=== PATIENT | male | born 1945 | race Caucasian/White ===

== ENCOUNTER 2018-06-27 01:24 | Inpatient (IN) | payer OTHER, MEDICARE ==
[~2018-06-27] VITALS: Ht 167.6 cm; Wt 98.6 kg
[~2018-06-27 01:24] MED LIST: ATENOLOL50 M1 PO; KEPPRA500 M1 PO; LISINOPRIL-HCT1 EACH PO; SIMVASTATIN40 M1 PO; XARELTO10 M1 PO
--- NOTE | 2018-06-27 10:30 | Admission Core Measures ---
Acute Coronary Syndrome (CM) ACS Core Measures Acute Coronary Syndrome Diagnosis No Congestive Heart Failure (NEW) CHF Core Measures Congestive Heart Failure Diagnosis No Cerebrovascular Accident CVA Core Measures CVA/TIA Diagnosis No Venous Thromboembolism VTE Core Danette (View Protocol) VTE Risk Factors Surgery No Mechanical VTE Prophylaxis d/t N/A MechProphylax Ordered No VTE Pharm Prophylaxis d/t NA PharmProphylax ordered HOME MEDS Home Med List Atenolol 50 MG TABLET 1 TAB PO DAILY BLOOD PRESSURE (Reported) Levetiracetam (Keppra) 500 MG TABLET 500 MG PO BID PT DENIES SEIZURE ACTIVITY (Reported) Lisinopril/Hydrochlorothiazide (Lisinopril-Hctz 20-12.5 MG Tab) 20 MG-12.5 MG TABLET 1 TAB PO DAILY BLOOD PRESSURE (Reported) Rivaroxaban (Xarelto) 10 MG TABLET 10 MG PO DAILY BLOOD THINNER (Reported) Simvastatin (Simvastatin*) 40 MG TABLET 40 MG PO DAILY CHOLESTEROL (Reported)
--- NOTE | 2018-06-27 10:33 | Surg Short-stay <48hrs Dis Sum ---
Visit Information Visit Dates Admission Date: 06/27/18 Discharge Date: 06/30/2018 Surgical Short Stay DC Summary Admission Diagnosis: Right hip osteoarthritis, previous fracture Final Diagnosis: Right total hip arthroplasty Procedure(s): Right conversion previous hip surgery to total hip arthroplasty Summary/Significant Findings: Patient tolerated procedure well. Postoperatively, was tolerating a regular diet, pain was managed, ambulated with physical therapy using a rolling walker and was cleared for discharge to his nursing facility as he require continued physical therapy and rehabilitation. He had postoperative complications of urinary retention and required multiple straight caths, he was also placed on Flomax until his urinary function returned to normal. His laboratory values are stable, he is afebrile and there are no immediate postoperative complications. Condition at Discharge: Good Discharge Disposition: REHAB Discharge instructions provided to patient/family: Yes Post discharge follow-up plan: To see Dr. Tay in 6 weeks
--- NOTE | 2018-06-27 10:36 | Patient Discharge Instructions ---
See Addendum Discharge Instructions General Discharge Information You were seen/treated for: Right hip pain You had these procedures: Right hip conversion to right total hip replacement Watch for these problems: Fever over 100.4 Drainage from wound Redness and swelling around wound Unable to bear weight Chest pain or shortness of breath Do not soak the wound: Yes No bath, but you may shower: Yes Other wound care: Daily dry dressing change Special Instructions: Continue the indomethacin until postop day #10 Continue aspirin 81 mg p.o. twice daily until 3 weeks postoperatively, then resume home dose of Xarelto for history of PE/DVT Patient had urinary retention here and required multiple straight caths, may require Salmon catheter if he cannot urinate. If catheter required, recommend leaving in place for 1 week, starting patient on Flomax and following up with urologist Diet Continue normal diet: Yes Activity Activity Limited to: Weight bear as tolerated (with rolling walker) Acute Coronary Syndrome Inclusion Criteria At DC or during hospital stay patient has or had the following: ACS DIAGNOSIS No Discharge Core Measures Meds if any: Prescribed or Continued at Discharge Meds if any: NOT Prescribed or Continued at Discharge Congestive Heart Failure Inclusion Criteria At DC or during hospital stay patient has or had the following: CHF DIAGNOSIS No Discharge Core Measures Meds if any: Prescribed or Continued at Discharge Meds if any: NOT Prescribed or Continued at Discharge Cerebrovascular accident Inclusion Criteria At DC or during hospital stay patient has or had the following: CVA/TIA Diagnosis No Discharge Core Measures Meds if any: Prescribed or Continued at Discharge Meds if any: NOT Prescribed or Continued at Discharge Venous thromboembolism Inclusion Criteria VTE Diagnosis No VTE Type NONE VTE Confirmed by (Test) NONE Discharge Core Measures - Per Current guidelines, there needs to be overlap - treatment for the first 5 days of Warfarin therapy. - If discharged on Warfarin prior to 5 days of - overlap therapy, the patient will need to be - assessed for post discharge needs including - *Post discharge parental anticoagulation - *Warfarin and/or parental anticoagulation education - *Follow up date to check INR post discharge At least 5 days overlap therapy as Inpatient No Meds if any: Prescribed or Continued at Discharge Note: Overlap Therapy is Warfarin and Anticoagulant Meds if any: NOT Prescribed or Continued at Discharge
[2018-06-27] MEDS ORDERED: COLACE100 M1 PO (11:38)
[2018-06-27] MEDS ORDERED: ASPIRIN EC81 M1 PO ×2 (11:38→13:21)
[2018-06-27] MEDS ORDERED: MIRALAX17 G1 PO (11:38)
[2018-06-27] MEDS ORDERED: DILAUDID2 M1 PO (11:38)
[2018-06-27] MEDS ORDERED: INDOMETHACIN25 M1 PO (13:21)
--- NOTE | 2018-06-27 13:58 | Operative Report ---
Operative/Inv Procedure Report Surgery Date: 06/27/18 Name of Procedure: Right total hip conversion Pre-Operative Diagnosis: Right hip posttraumatic DJD Post-Operative Diagnosis: Same Estimated Blood Loss: 650 Surgeon/Gis Administrator: Maggi ST,David Yoder Anesthesia: block Operative/Procedure Note Note: Description of Procedure: The patient was taken to the operating room and positively identified. After induction of spinal anesthesia and administration of appropriate pre-operative antibiotics, the patient was positioned supine on the operating room table and all bony prominences were well padded. After performing a surgical timeout, the right lower extremity was prepped and draped in the usual sterile fashion. A direct anterior approach was made to the right hip. The incision was carried sharply through superficial soft tissues to the level of the fascia. Meticulous hemostasis was maintained with Bovie electocautery. The fascia over the tensor fascia ronan muscle was opened sharply and the interval between the TFL and the sartorius was entered bluntly taking care to stay lateral to the lateral femoral cutaneous nerve. Retractors were placed around the femoral neck and the pericapsular fat was identified. The ascending branches of the lateral femoral circumflex vessels were identified and carefully coagulated. The pericapsular fat and anterior capsule were then resected. Copious heterotopic ossification was noted anteriorly around the acetabular rim as well as superolaterally at the tip of the greater trochanter abutting against the lateral pelvis. The femoral neck was exposed via osteotomes and a rongeur. A napkin ring osteotomy was performed and the femoral head was removed without difficulty. Attention was then turned to the acetabulum. After appropriate placement of retractors, the acetabulum was exposed. Again this osteophyte were encountered circumferentially. Exposure continued until the [place] landmarks of the acetabulum could be identified. Extensive soft tissue releases were carried out to aid in exposure. Soft tissue was cleaned from the acetabular margin and notch. The acetabulum was then sequentially reamed in the anatomic position to accept a 66 mm Bourg Trident Tritanium hemispherical shell. This was impacted into place in the appropriate position and multiple screws were used for supplemental fixation. It was then fit with a 36 mm Trident X3 zero degree polyethylene insert. Attention was then turned to the femur. Extensive bone was noted posterior to the greater trochanter and during exposure of the femur itself. Again utilizing an osteotome and careful dissection the posterior capsule was accessed and released. After performing the appropriate ligament releases, the proximal femur was exposed. It was then sequentially broached to accept a size 9 Bourg Accolade II stem. This was trialed for leg length and stability. The trial component was removed and the final component was impacted into place. The trunnion was carefully cleaned and fit with a 36 mm, +0 Biolox delta ceramic femoral head. The hip was reduced and put through a full range of motion and found to be stable. The articular space was then irrigated with sterile saline. The periarticular soft tissues were infilitrated with Marcaine. A Hemovac drain was left in the articular space. The fascial layer was closed with interrupted #1 vicryl suture and the skin was re-approximated with interrupted 2-0 vicryl. The skin was closed with gen. The patient was awakened and taken to the recovery room in satisfactory condition.
--- NOTE | 2018-06-27 15:18 | RADIOLOGY REPORT ---
EXAMINATION: XR HIP, RIGHT CLINICAL INFORMATION: Status post right hip replacement. COMPARISON: None TECHNIQUE: Two views of the right hip. FINDINGS: Status post right total hip replacement. Orthopedic components in position. There is no dislocation. Surgical drain in place. IMPRESSION: Status post right hip replacement.
[2018-06-27 15:46] LABS: ABSOLUTE BASOPHIL COUNT 0.1 /CUMM (0.0-0.2); ABSOLUTE EOSINOPHIL COUNT 0.2 /CUMM (0.0-0.7); ABSOLUTE GRANULOCYTE CT 11.5 /CUMM (1.4-6.5); ABSOLUTE LYMPH COUNT 1.5 /CUMM (1.2-3.4); ABSOLUTE MONOCYTE COUNT 0.9 /CUMM (0.10-0.60); BASOPHIL % 0.4 % (0.0-2.0); EOSINOPHIL % 1.3 % (0-5); GRANULOCYTE % 81.4 % (42.2-75.2); HEMATOCRIT 35.3 % (42-52); MEAN CORPUSCULAR HGB 30.9 PG (27.0-31.0); MEAN CORPUSCULAR HGB CONC 34.1 G/DL (33.0-37.0); MEAN CORPUSCULAR VOLUME 90.4 FL (80.0-94.0); MEAN PLATELET VOLUME 7.9 FL (7.4-10.4); PLATELET COUNT 191 /CUMM (130-400); RBC DISTRIBUTION WIDTH 14.1 % (11.5-14.5); RED BLOOD CELL CT 3.91 /CUMM (4.70-6.10); WHITE BLOOD CELL COUNT 14.1 /CUMM (4.8-10.8)
[2018-06-27 17:26] VITALS: BP 126/70
[2018-06-27 19:15] VITALS: BP 114/56
[2018-06-27 21:09] VITALS: BP 120/58
--- NOTE | 2018-06-27 22:11 | PN- Orthopedic ---
Subjective Subjective: poc s/p right franco resting comfortably deneis cp, sob, no n+v Objective Vital Signs and I&Os Vital Signs Date Time Temp Pulse Resp B/P B/P Pulse O2 O2 Flow FiO2 Mean Ox Delivery Rate 06/27 2109 97.9 101 20 120/58 92 Nasal 2.0L Cannula 06/27 1941 Nasal 2.0L Cannula 06/27 1915 97.6 102 20 114/56 92 Nasal 2.0L Cannula 06/27 1727 Nasal 2.0L Cannula 06/27 1726 97.7 78 18 126/70 95 Nasal 2.0L Cannula Intake & Output 06/27 1600 06/27 0800 06/27 0000 06/26 1600 06/26 0800 06/26 0000 Intake Total Output Total Balance Patient 232 lb Weight Physical Exam: cv: rrr lungs: clear abd: soft, +bs ext: thigh soft distal cms intact hemovac: sanguinous drainage Assessment/Plan Assessment/Plan ortho stable plan advance diet indocin for h/o asa fro dvt prophylaxis oob with pt in am ttwb right le Core Measures Venous Thromboembolism VTE Risk Factors Surgery No Mechanical VTE Prophylaxis d/t N/A MechProphylax Ordered No VTE Pharm Prophylaxis d/t NA PharmProphylax ordered
[2018-06-27 23:25] VITALS: BP 124/60
[2018-06-28 02:05] VITALS: BP 118/60
[2018-06-28 05:54] VITALS: BP 118/60
--- NOTE | 2018-06-28 07:32 | PN- Orthopedic ---
Subjective Subjective: Complaints of soreness, moderate pain, controlled with pain medication. Having urinary retention and required straight cath 2. Objective Vital Signs and I&Os Vital Signs Date Time Temp Pulse Resp B/P B/P Pulse O2 O2 Flow FiO2 Mean Ox Delivery Rate 06/28 0554 98.3 95 20 118/60 93 Nasal 2.0L Cannula 06/28 0205 97.9 93 20 118/60 91 Nasal Cannula 06/28 0000 Nasal 2.0L Cannula 06/27 2325 98.2 101 20 124/60 92 Nasal Cannula 06/27 2109 97.9 101 20 120/58 92 Nasal 2.0L Cannula 06/27 1941 Nasal 2.0L Cannula 06/27 1915 97.6 102 20 114/56 92 Nasal 2.0L Cannula 06/27 1727 Nasal 2.0L Cannula 06/27 1726 97.7 78 18 126/70 95 Nasal 2.0L Cannula Intake & Output 06/28 0800 /16 0000 15 1600 06/27 0800 06/27 0000 06/26 1600 Intake Total 800 1050 Output Total 550 350 Balance 250 700 Intake, IV 600 450 Intake, Oral 200 600 Output, 300 350 Drainage Output, Urine 250 Patient 219 lb 232 lb 232 lb Weight Physical Exam: Well-developed well-nourished no apparent distress. HEENT: Atraumatic, extraocular motion intact Neck: Supple, no lymphadenopathy Respiratory: No respiratory distress Extremities: No edema RIGHT lower extremity hip dressing in place, Dressing clean dry and intact Hemovac in place, approximately 100 cc of bloody drainage Incision without erythema Mild thigh swelling No signs of infection. No shortening or rotation Hip range of motion is limited and without unexpected pain Neurovascularly intact distally Bilateral calves are supple, nontender. Neuro: Alert and oriented x3 Psych: Mood affect normal, normal memory normal judgment. Skin: Warm and dry, no rash on exposed skin Results Last 48 Hours of Labs: Laboratory Tests 06/28 06/27 0604 1535 Chemistry Sodium Pending Potassium Pending Chloride Pending Carbon Dioxide Pending Anion Gap Pending BUN Pending Creatinine Pending BUN/Creatinine Ratio Pending Hematology CBC w Diff NO MAN DIFF REQ NO MAN DIFF REQ WBC (4.8 - 10.8 /CUMM) 14.2 H 14.1 H RBC (4.70 - 6.10 /CUMM) 3.86 L 3.91 L Hgb (14.0 - 18.0 G/DL) 12.0 L 12.1 L Hct (42 - 52 %) 34.7 L 35.3 L MCV (80.0 - 94.0 FL) 89.9 90.4 MCH (27.0 - 31.0 PG) 31.2 H 30.9 MCHC (33.0 - 37.0 G/DL) 34.7 34.1 RDW (11.5 - 14.5 %) 14.3 14.1 Plt Count (130 - 400 /CUMM) 212 191 MPV (7.4 - 10.4 FL) 8.7 7.9 Gran % (42.2 - 75.2 %) 80.6 H 81.4 H Lymphocytes % (20.5 - 51.1 %) 10.0 L 10.8 L Monocytes % (1.7 - 9.3 %) 8.5 6.1 Eosinophils % (0 - 5 %) 0.6 1.3 Basophils % (0.0 - 2.0 %) 0.3 0.4 Absolute Granulocytes (1.4 - 6.5 /CUMM) 11.4 H 11.5 H Absolute Lymphocytes (1.2 - 3.4 /CUMM) 1.4 1.5 Absolute Monocytes (0.10 - 0.60 /CUMM) 1.2 H 0.9 H Absolute Eosinophils (0.0 - 0.7 /CUMM) 0.1 0.2 Absolute Basophils (0.0 - 0.2 /CUMM) 0 0.1 Assessment/Plan Assessment/Plan Postop day #1 status post right total hip arthroplasty anterior approach. Perioperative antibiotics. Pain medication as needed. Out of bed Physical therapy, toe-touch weightbearing Continue Hemovac drain Trial of void, straight cath protocol, may require Salmon catheter and Flomax DC IV fluids Regular diet Follow a.m. labs Aspirin for DVT prophylaxis, 81 mg p.o. twice daily 3 weeks then resume Xarelto Indocin to prevent heterotopic ossification ALPS for DVT prophylaxis Regular home meds Dressing change postop day 2 Plan for transfer to rehab facility in 1-2 days, [facility] Core Measures Venous Thromboembolism VTE Risk Factors Surgery No Mechanical VTE Prophylaxis d/t N/A MechProphylax Ordered No VTE Pharm Prophylaxis d/t NA PharmProphylax ordered
[2018-06-28 07:39] LABS: ABSOLUTE BASOPHIL COUNT 0 /CUMM (0.0-0.2); ABSOLUTE EOSINOPHIL COUNT 0.1 /CUMM (0.0-0.7); ABSOLUTE GRANULOCYTE CT 11.4 /CUMM (1.4-6.5); ABSOLUTE LYMPH COUNT 1.4 /CUMM (1.2-3.4); ABSOLUTE MONOCYTE COUNT 1.2 /CUMM (0.10-0.60); BASOPHIL % 0.3 % (0.0-2.0); EOSINOPHIL % 0.6 % (0-5); GRANULOCYTE % 80.6 % (42.2-75.2); HEMATOCRIT 34.7 % (42-52); MEAN CORPUSCULAR HGB 31.2 PG (27.0-31.0); MEAN CORPUSCULAR HGB CONC 34.7 G/DL (33.0-37.0); MEAN CORPUSCULAR VOLUME 89.9 FL (80.0-94.0); MEAN PLATELET VOLUME 8.7 FL (7.4-10.4); PLATELET COUNT 212 /CUMM (130-400); RBC DISTRIBUTION WIDTH 14.3 % (11.5-14.5); RED BLOOD CELL CT 3.86 /CUMM (4.70-6.10); WHITE BLOOD CELL COUNT 14.2 /CUMM (4.8-10.8)
[2018-06-28 11:37] VITALS: BP 100/60
--- NOTE | 2018-06-28 11:37 | RADIOLOGY REPORT ---
EXAMINATION: XR HIP, RIGHT CLINICAL INFORMATION: Postop right total hip arthroplasty. COMPARISON: Intraoperative x-rays 06/27/2018. TECHNIQUE: Two views of the right hip were obtained. FINDINGS: The study redemonstrates the sequelae of the right total hip arthroplasty. Alignment of the prosthesis appears anatomic. There are no acute fractures. A drainage tube is noted in position. IMPRESSION: 1. Stable postoperative changes from right total hip arthroplasty.
[2018-06-28 13:40] VITALS: BP 130/68
[2018-06-28 21:49] VITALS: BP 140/70
[2018-06-29 02:30] VITALS: BP 130/64
[2018-06-29 06:19] VITALS: BP 156/80
[2018-06-29 07:59] LABS: ABSOLUTE BASOPHIL COUNT 0 /CUMM (0.0-0.2); ABSOLUTE EOSINOPHIL COUNT 0.2 /CUMM (0.0-0.7); ABSOLUTE GRANULOCYTE CT 11.6 /CUMM (1.4-6.5); ABSOLUTE LYMPH COUNT 1.3 /CUMM (1.2-3.4); ABSOLUTE MONOCYTE COUNT 1.6 /CUMM (0.10-0.60); BASOPHIL % 0.1 % (0.0-2.0); EOSINOPHIL % 1.2 % (0-5); GRANULOCYTE % 78.9 % (42.2-75.2); HEMATOCRIT 32.3 % (42-52); MEAN CORPUSCULAR HGB 31.3 PG (27.0-31.0); MEAN CORPUSCULAR HGB CONC 34.4 G/DL (33.0-37.0); MEAN CORPUSCULAR VOLUME 90.9 FL (80.0-94.0); MEAN PLATELET VOLUME 8.6 FL (7.4-10.4); PLATELET COUNT 195 /CUMM (130-400); RBC DISTRIBUTION WIDTH 14.6 % (11.5-14.5); RED BLOOD CELL CT 3.56 /CUMM (4.70-6.10); WHITE BLOOD CELL COUNT 14.7 /CUMM (4.8-10.8)
--- NOTE | 2018-06-29 08:30 | PN- Orthopedic ---
Subjective Subjective: pod#2 s/p right franco no major issues overnight denies cp, sob, no n+v with diet has a productive cough now and is belching now, will observe has beeen oob with PT no bm Objective Vital Signs and I&Os Vital Signs Date Time Temp Pulse Resp B/P B/P Pulse O2 O2 Flow FiO2 Mean Ox Delivery Rate / 0810 106 156/80 / 0810 106 156/80 / 0810 106 156/80 / 0619 99.6 106 20 156/80 94 Room Air 06/29 0230 98.7 99 20 130/64 91 Room Air 06/29 0104 99.0 06/29 0000 Nasal 1.0L Cannula 06/28 2337 99.0 06/28 2149 100.1 116 20 140/70 94 Nasal Cannula 06/28 1600 Nasal 2.0L Cannula 06/28 1419 Room Air 2.0L 06/28 1340 98.5 91 20 130/68 92 Room Air 06/28 1137 97.0 93 20 100/60 95 Room Air Intake & Output 06/29 1600 06/29 0800 06/29 0000 06/28 1600 06/28 0800 06/28 0000 Intake Total 400 850 823 214 3040 Output Total 170 300 800 550 350 Balance 230 550 -365 250 700 Intake, IV 75 600 450 Intake, Oral 400 850 360 200 600 Output, 120 150 400 300 350 Drainage Output, Urine 50 150 400 250 Patient 219 lb 232 lb Weight Physical Exam: cv: rrr lungs: good air movement, mild rhonchi abd: obese, +bs ext: drsg change, drain d/c'd, wound c/d/i no calf tenderness bilat, distal cms intact schmitz: clear urine Assessment/Plan Assessment/Plan ortho stable schmitz placed last evening for repeated straight caths plan cont oob with pt encourage IS start flomax this am will attemp voiding trial later today snf tomorrow Core Measures Venous Thromboembolism VTE Risk Factors Surgery No Mechanical VTE Prophylaxis d/t N/A MechProphylax Ordered No VTE Pharm Prophylaxis d/t NA PharmProphylax ordered
[2018-06-29 13:45] VITALS: BP 120/80
[2018-06-29 22:38] VITALS: BP 120/60
[2018-06-30 05:52] VITALS: BP 110/62
[2018-06-30 10:08] LABS: ABSOLUTE BASOPHIL COUNT 0 /CUMM (0.0-0.2); ABSOLUTE EOSINOPHIL COUNT 0.4 /CUMM (0.0-0.7); ABSOLUTE GRANULOCYTE CT 12.2 /CUMM (1.4-6.5); ABSOLUTE LYMPH COUNT 1.3 /CUMM (1.2-3.4); ABSOLUTE MONOCYTE COUNT 1.5 /CUMM (0.10-0.60); BASOPHIL % 0.1 % (0.0-2.0); EOSINOPHIL % 2.5 % (0-5); HEMATOCRIT 30.6 % (42-52); MEAN CORPUSCULAR HGB 31.3 PG (27.0-31.0); MEAN CORPUSCULAR HGB CONC 34.6 G/DL (33.0-37.0); MEAN CORPUSCULAR VOLUME 90.3 FL (80.0-94.0); MEAN PLATELET VOLUME 8.2 FL (7.4-10.4); PLATELET COUNT 219 /CUMM (130-400); RBC DISTRIBUTION WIDTH 14.6 % (11.5-14.5); RED BLOOD CELL CT 3.39 /CUMM (4.70-6.10); WHITE BLOOD CELL COUNT 15.4 /CUMM (4.8-10.8)
--- NOTE | 2018-06-30 10:10 | PN- Orthopedic ---
Subjective Subjective: Pain is controlled, was able to void this morning. No fever no flulike illness no acute events overnight Objective Vital Signs and I&Os Vital Signs Date Time Temp Pulse Resp B/P B/P Pulse O2 O2 Flow FiO2 Mean Ox Delivery Rate 06/30 927 102 126/70 06/30 09 102 126/70 06/30 09 102 126/70 06/30 0552 99.0 91 20 110/62 92 Room Air 06/29 2238 99.6 103 20 120/60 91 Room Air 06/29 1345 98.0 99 20 120/80 93 Room Air Intake & Output 06/30 1600 06/30 0800 06/30 0000 06/29 1600 06/29 0800 06/29 0000 Intake Total 100 620 400 850 Output Total 225 800 170 300 Balance -225 100 -180 230 550 Intake, Oral 100 620 400 850 Output, 120 150 Drainage Output, Urine 225 800 50 150 Patient 217 lb Weight Physical Exam: Insert postop total hip Well-developed well-nourished no apparent distress. HEENT: Atraumatic, extraocular motion intact Neck: Supple, no lymphadenopathy Respiratory: No respiratory distress Extremities: No edema RIGHT lower extremity hip dressing in place, Dressing clean dry and intact with minimal bloody staining Mild thigh swelling No signs of infection. No shortening or rotation Hip range of motion is limited and without unexpected pain Neurovascularly intact distally Bilateral calves are supple, nontender. Neuro: Alert and oriented x3 Psych: Mood affect normal, normal memory normal judgment. Skin: Warm and dry, no rash on exposed skin Assessment/Plan Assessment/Plan Postop day #3 status post right total hip arthroplasty anterior approach [facility] to [facility] for continued physical therapy and rehabilitation Toe-touch weightbearing Aspirin for DVT prophylaxis 3 weeks postoperative, then resume Xarelto Indocin for prevention of heterotopic ossification for a total of 10 days Urinary retention appears to have resolved although discussed with patient that he may need Salmon catheter to remain in place and be placed on Flomax if he cannot urinate, he understands, this may be performed at the prison facility as well if needed Core Measures Venous Thromboembolism VTE Risk Factors Surgery No Mechanical VTE Prophylaxis d/t N/A MechProphylax Ordered No VTE Pharm Prophylaxis d/t NA PharmProphylax ordered
[2018-06-30 13:37] VITALS: BP 110/60
[2018-06-30] MEDS ORDERED: FLOMAX0.4 M1 PO (14:17)
[2018-06-30 16:14] VITALS: BP 110/60
== END 2018-06-30 16:35 | DRG 470 ==
LOC: SDA 01:24 → 2NA 01:24 → ENRESERV 16:20 → ENTRNSPT 16:59 → EDTRNSPTSTS 17:04 → EDTRNSPT 17:04 → 2NA 17:12 → CMPTRNSPT 17:18 → ENPENDDIS 06-30 10:47 → 2NA 06-30 16:35
PROVIDERS: Nurse Practitioner; Orthopaedic Surgery; Physician Assistant; Physician Assistant Surgical
PROC: 0SR904A Replacement of Right Hip Joint with Ceramic on Polyethylene Synthetic Substitute, Uncemented, Open Approach (ICD-10-PCS; principal; 2018-06-27)
PROC: 0QP604Z Removal of Internal Fixation Device from Right Upper Femur, Open Approach (ICD-10-PCS; principal; 2018-06-27)
DX: M16.51 Unilateral post-traumatic osteoarthritis, right hip (principal); G91.2 (Idiopathic) normal pressure hydrocephalus; E66.01 Morbid (severe) obesity due to excess calories; Z68.37 Body mass index [BMI] 37.0-37.9, adult; E11.9 Type 2 diabetes mellitus without complications; Z87.81 Personal history of (healed) traumatic fracture; R33.9 Retention of urine, unspecified; E78.5 Hyperlipidemia, unspecified; I10 Essential (primary) hypertension; Z86.711 Personal history of pulmonary embolism; Z87.891 Personal history of nicotine dependence; Z86.718 Personal history of other venous thrombosis and embolism; Z88.0 Allergy status to penicillin
CPT/HCPCS: 2NASP; 36415; 36592; 73502-RT; 82436; 87086; 97110-GO; 97116-GO; 97161-GP; 97530-GO; J0131; J0690; J0735; J1815; J3490; J7042